=== PATIENT | female | born 1940 | race Caucasian/White ===

== ENCOUNTER → 2016-03-28 | Outpatient (CLI) | payer MEDICARE, BC ==
[~2016-03-28] MED LIST: AMLO1TAB58; ASPI-650; CALC-21; CENTSILV; DILT120C54; LEVO88TA3; OMEG100016; VALS1TAB61; ZOLP10TA; [UNRECOGNIZED DRUG - CODE]
--- NOTE | 2016-03-28 10:32 | RADRPT ---
PROCEDURE: XR pelvis/right hip. CLINICAL INDICATION: Hip pain TECHNIQUE: AP pelvis/AP and lateral right hip views available for review. COMPARISON: None available FINDINGS: The osseous structures are normal in mineralization, architecture and alignment. No fractures are i dentified. No osseous lesions are identified. The joints are unremarkable. The soft tissues are u nremarkable. IMPRESSION: Unremarkable examination RPTAT: [facility] .Shay Vila MD, MD Date Time Electronically viewed and signed by .Shay Vila MD, on 03/28/2016 10:31 .B/
== END | disposition home or self-care (01) ==
LOC: HKI 09:58
PROVIDERS: ATTEND Orthopaedic Surgery
DX: M70.61 Trochanteric bursitis, right hip (principal); M25.551 Pain in right hip
CPT/HCPCS: 20610; 73502; G0463